=== PATIENT | female | born 1990 | race African-American/Black ===

== ENCOUNTER 2017-05-20 10:58 | Emergency (ER) | payer BC ==
[~2017-05-20] VITALS: Ht 165.1 cm; Wt 154.2 kg
[2017-05-20 10:59] VITALS: BP 167/74
[2017-05-20] MEDS ORDERED: AUGMENTIN 875-1 EACH PO (11:29)
[2017-05-20] MEDS ORDERED: IBUPROFEN 600600 M1 PO (11:31)
[2017-05-20] MEDS ORDERED: NORCO 5-325 TA1 EACH PO (11:31)
== END 2017-05-20 11:48 | disposition home or self-care (01) ==
LOC: ER 10:58
DX: S61.431A Puncture wound without foreign body of right hand, initial encounter (principal); M79.641 Pain in right hand; W54.0XXA Bitten by dog, initial encounter; Y93.89 Activity, other specified; Y92.89 Other specified places as the place of occurrence of the external cause; Y99.8 Other external cause status

== ENCOUNTER 2017-05-25 19:45 | Emergency (ER) | payer BC ==
[~2017-05-25] VITALS: Ht 165.1 cm; Wt 172.4 kg
[~2017-05-25 19:45] MED LIST: AUGMENTIN 875-1 EACH PO; IBUPROFEN 600600 M1 PO; NORCO 5-325 TA1 EACH PO
[2017-05-25 19:55] VITALS: BP 154/105
[2017-05-25] MEDS ORDERED: BACTRIM DS TAB1 EACH PO (20:13)
== END 2017-05-25 20:15 | disposition home or self-care (01) ==
LOC: ER 19:45
DX: S61.451A Open bite of right hand, initial encounter (principal); W54.0XXA Bitten by dog, initial encounter; Y93.89 Activity, other specified; Y92.89 Other specified places as the place of occurrence of the external cause; Y99.8 Other external cause status

== ENCOUNTER 2017-09-09 11:04 | Emergency (ER) | payer OTHER ==
[~2017-09-09] VITALS: Ht 165.1 cm; Wt 165.6 kg
[~2017-09-09 11:04] MED LIST changes: +BACTRIM DS TAB1 EACH PO
== END 2017-09-09 11:53 | disposition home or self-care (01) ==
LOC: ER 11:04
DX: M25.441 Effusion, right hand (principal); I10 Essential (primary) hypertension; Z91.013 Allergy to seafood

== ENCOUNTER 2017-09-11 23:25 | Emergency (ER) | payer OTHER ==
[~2017-09-11] VITALS: Ht 165.1 cm; Wt 170.1 kg
--- NOTE | ~2017-09-11 | EKG ---
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: Valeria CARRANZA : 1990 Requested By: Beny Mejia Order Number: [id number] MD: Shady Goldstein Measurements Intervals [place] Rate: 82 P: 55 MD: 164 QRS: 21 QRSD: 95 T: 30 QT: 392 QTc: 458 Interpretive Statements Sinus rhythm No significant abnormality No previous ECG available for comparison Electronically Signed On 09-12-2017 8:13:14 CDT by Shady Goldstein [email or web address] <ELECTRONICALLY SIGNED> By: Shady Goldstein MD, [facility] 09/12/17 0813 [id number] [id number] Shady Goldstein MD, FACC /EPI
[2017-09-12] MEDS ORDERED: LISINOPRIL10 MG PO (00:15)
[2017-09-12] MEDS ORDERED: ADIPEX-P37.5 MG PO (00:15)
[2017-09-12 00:25] LABS: ABSOLUTE NEUTROPHILS 4.6 thou/uL (1.4-8.2); BASOPHILS 0.7 % (0.0-2.0); EOSINOPHILS 2.1 % (0.0-3.0); HEMATOCRIT 35.8 % (37.0-47.0); HEMOGLOBIN 11.4 gm/dL (12.0-15.0); LYMPHOCYTES 33.5 % (24.0-44.0); MCH 23.9 pg (26.0-34.0); MCHC 31.7 g/dL (28.0-37.0); MCV 75.2 fL (80.0-100.0); MONOCYTES 8.6 % (1.0-8.0); PLATELET COUNT 316 thou/uL (150-400); POLYS 55.1 % (36.0-66.0); RBC 4.76 mil/uL (4.20-5.00); RDW 17.1 % (10.5-14.5); WBC 8.3 thou/uL (4.0-11.0)
[2017-09-12 00:27] LABS: ANION GAP 6 mmol/L (7-16); BUN 13 mg/dL (7-18); CALCIUM 9.1 mg/dL (8.5-10.1); CHLORIDE 100 mmol/L (98-107); CO2 29 mmol/L (21-32); GLUCOSE 116 mg/dL (74-106); POTASSIUM 3.4 mmol/L (3.5-5.1); SODIUM 135 mmol/L (136-145)
[2017-09-12 00:36] LABS: TROPONIN-I < 0.04 ng/mL (<0.06)
== END 2017-09-12 02:21 | disposition home or self-care (01) ==
LOC: ER 23:25
PROVIDERS: Emergency Medicine
DX: R07.89 Other chest pain (principal); I10 Essential (primary) hypertension; Z91.013 Allergy to seafood

== ENCOUNTER 2017-09-16 14:00 | Emergency (ER) | payer OTHER ==
[~2017-09-16] VITALS: Ht 165.1 cm; Wt 170.1 kg
--- NOTE | ~2017-09-16 | EKG ---
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: [facility] : 1990 Requested By: Jerrod Rebollar Order Number: [id number] MD: Johnny Benjamin Measurements Intervals [place] Rate: 88 P: -19 WI: 155 QRS: 26 QRSD: 121 T: 26 QT: 388 QTc: 470 Interpretive Statements Sinus rhythm Nonspecific intraventricular conduction delay Compared to ECG 09/11/2017 23:54:45 Intraventricular conduction delay now present Electronically Signed On 09-16-2017 21:50:48 CDT by Johnny Benjamin [email or web address] <ELECTRONICALLY SIGNED> By: Johnny Benjamin MD 09/16/17 2150 1405 04 Johnny Benjamin MD /OG
[~2017-09-16 14:00] MED LIST changes: +ADIPEX-P37.5 MG PO; +LISINOPRIL10 MG PO
[2017-09-16 15:56] LABS: ABSOLUTE NEUTROPHILS 3.6 thou/uL (1.4-8.2); BASOPHILS 1.2 % (0.0-2.0); EOSINOPHILS 2.3 % (0.0-3.0); HEMOGLOBIN 11.2 gm/dL (12.0-15.0); LYMPHOCYTES 34.5 % (24.0-44.0); MCH 24.3 pg (26.0-34.0); MCV 75.7 fL (80.0-100.0); MONOCYTES 10.5 % (1.0-8.0); PLATELET COUNT 298 thou/uL (150-400); POLYS 51.5 % (36.0-66.0); RBC 4.62 mil/uL (4.20-5.00); RDW 16.7 % (10.5-14.5); WBC 7.1 thou/uL (4.0-11.0)
[2017-09-16 16:10] LABS: ANION GAP 8 mmol/L (7-16); BUN 11 mg/dL (7-18); CALCIUM 9.4 mg/dL (8.5-10.1); CHLORIDE 100 mmol/L (98-107); CO2 29 mmol/L (21-32); CREATININE 0.9 mg/dL (0.6-1.0); GLUCOSE 90 mg/dL (74-106); POTASSIUM 3.4 mmol/L (3.5-5.1); SODIUM 137 mmol/L (136-145)
[2017-09-16 16:19] LABS: TROPONIN-I < 0.04 ng/mL (<0.06)
[2017-09-16] MEDS ORDERED: MOBIC15 MG PO (16:59)
== END 2017-09-16 17:15 | disposition home or self-care (01) ==
LOC: ER 14:00
PROVIDERS: Physician Assistant
DX: R07.89 Other chest pain (principal); I10 Essential (primary) hypertension; F10.99 Alcohol use, unspecified with unspecified alcohol-induced disorder; Z91.013 Allergy to seafood